=== PATIENT | male | born 1980 | race African-American/Black ===

== ENCOUNTER 2021-05-28 09:31 | Emergency (ER) | payer OTHER ==
[~2021-05-28] VITALS: Ht 177.8 cm; Wt 99.8 kg
[2021-05-28 10:50] VITALS: BP 104/61
[2021-05-28] MEDS ORDERED: LORAZEPAM 1 MG TABLET ONE (11:18)
[2021-05-28] MEDS ORDERED: ONDANSETRON 4 MG TAB.RAPDIS ONE (11:20)
[2021-05-28] MEDS ORDERED: TDAP [DIPH/PERTUSSIS/TET] 0.5 ML VIAL IM ONE ×2 (11:28→11:30)
[2021-05-28] MEDS ORDERED: LORAZEPAM 1 MG TABLET PO ONE (11:30)
[2021-05-28] MEDS ORDERED: ONDANSETRON 4 MG TAB.RAPDIS SL ONE (11:30)
--- NOTE | 2021-05-28 11:44 | NUR ---
SEEN AND EVALUATED BY DR HUERTA, PROVIDED W/ WOUND CARE AND DRESSING TO L HAND. AND GIVEN TETANUS SHOT. MEDICALLY CLEARED. DISCHARGED TO [facility] IN STABLE CONDITION.
== END 2021-05-28 11:47 ==
LOC: ER 10:05
DX: T23.202A Burn of second degree of left hand, unspecified site, initial encounter (principal); F11.10 Opioid abuse, uncomplicated; I10 Essential (primary) hypertension; E11.9 Type 2 diabetes mellitus without complications; J45.909 Unspecified asthma, uncomplicated; G47.30 Sleep apnea, unspecified; Z02.89 Encounter for other administrative examinations; Z98.890 Other specified postprocedural states; Z88.0 Allergy status to penicillin; X08.8XXA Exposure to other specified smoke, fire and flames, initial encounter; Y93.89 Activity, other specified; Y92.89 Other specified places as the place of occurrence of the external cause; Y99.8 Other external cause status
CPT/HCPCS: 90471; 90715; 99283; Q0162